=== PATIENT | female | born 1975 | race Caucasian/White ===

== ENCOUNTER 2020-02-09 10:20 | Outpatient (REF) | payer MEDICAID, SELFPAY ==
[2020-02-11 23:08] LABS: SARS-CoV-2 RNA Undetected (Undetected)
== END 2020-02-09 10:40 ==
LOC: NCHCN 10:20
PROVIDERS: PCP Nurse Practitioner Family; Visit Provider Family Medicine
DX: Z11.59 Encounter for screening for other viral diseases (principal)
CPT/HCPCS: U0003

== ENCOUNTER 2020-06-13 21:00 | Outpatient (REF) | payer MEDICAID, SELFPAY ==
[2020-06-15 17:34] LABS: Patient Race White; SARS-CoV-2 RNA Undetected (Undetected); SARS-CoV-2 Specimen Source Nasal
== END 2020-06-13 21:20 ==
LOC: NCHCN 21:00
PROVIDERS: PCP Nurse Practitioner Family; Visit Provider Nurse Practitioner Family
DX: Z11.59 Encounter for screening for other viral diseases (principal)
CPT/HCPCS: U0003